=== PATIENT | male | born 1970 | race African-American/Black ===

== ENCOUNTER 2018-11-30 13:42 | Outpatient (CLI) | payer BC ==
--- NOTE | 2018-11-30 15:11 | ULT ---
TESTICULAR ULTRASOUND WITH DOPPLER: INDICATION: Testicular pain. TECHNIQUE: Bergeron scale, color Doppler, and spectral Doppler images were obtained of the scrotum. FINDINGS: No intratesticular mass is demonstrated. There is symmetric flow seen in both testicles. There is n o evidence to suggest torsion. The right testicle measured 3.0 x 1.7 x 2.7 cm. The left testicle measured 4.0 x 2.2 x 2.8 cm. Ther e are multiple prominent vessels seen within the region of the left Pampiniform plexus, many of which approach 3 mm. No Valsalva maneuver was reported to have been performed. The epididymi appear with in normal limits. IMPRESSION: 1. No intratesticular mass or torsion demonstrated. 2. Prominence of the left Pampiniform plexus approaching diagnostic threshold of left-sided varicoce le. A Valsalva maneuver was not performed during the examination. If there is remains clinical conc jesus related to this finding, a followup scrotal ultrasound is recommended. POS: OFF
== END 2018-11-30 13:43 | disposition home or self-care (01) ==
LOC: ULT 13:42 → BICULT 13:43
DX: N50.811 Right testicular pain (principal)
CPT/HCPCS: 76870; 93976